=== PATIENT | male | born 1975 | race Caucasian/White ===

== ENCOUNTER → 2018-04-08 | Outpatient (CLI) | payer BC ==
--- NOTE | 2018-04-12 18:03 | PCVCIMAG ---
APPROVED REPORT Study performed: 04/08/2018 16:04:12 Exam: Stress Echocardiogram Indication: Palpitations, tachycardia Patient Location: Echo lab Stress Nurse: Jenna Jackson RN Room #: 2 Status: routine Ht: 6 ft 1 in HR: 77 bpm BP: 120/88 mmHg Rhythm: NSR Medical History Medical History: Hyperlipidemia Cardiac Risk Factors: Hyperlipidemia, Tobacco History (Former) Previous Cardiac Procedures: none Pretest Chest Pain Characteristics: No chest pain Exercise History: Sedentary Procedure The patient underwent an Exercise Stress Test using the Scott Protocol. Blood pressure, heart rate, and EKG were monitored. An Echocardiogram was performed by corrosion technician in four stages in quad fashion. At peak stress, four selected images were obtained and placed side by side with resting images for comparison. Stress Test Details Stress Test: Exercise stress testing was performed using a Scott protocol. HR Resting HR: 80 bpmMax Heart Rate (APMHR): 177 bpm Max HR Achieved: 176 bpmTarget HR (85% APMHR): 150 bpm % of APMHR: 99 Recovery HR: 99 bpm HR response to stress: Normal HR response to stress BP Resting BP: 120/88 mmHg Max BP: 164/80 mmHg Recovery BP: 132/80 mmHg ECG Resting ECG: Sinus Rhythm with sinus arrhythmia Stress ECG: Sinus Rhythm ST Change: Non-ischemic Arrhythmia: None Recovery ECG: Sinus Rhythm Recovery ST Change: Eqivocally ischemic Recovery Arrhythmia: None Clinical Reason for Termination: Maximal effort Stress Symptoms: none Exercise duration: 9 min 15 sec Highest Stage Achieved: Stage 4: 4.2 mph at 16% grade. Exercise capacity: 10.8 METs Overall Exercise Capacity for Age: Average Scale: Sedentary Angina Score: None No complications. Stress ECG Conclusion The patient exercised according to the SCOTT protocol for 9:15 mins; achieving a work level of 10.8 METS. The resting heart rate of 77 bpm claude to a maximum heart rate of 176 bpm. This value represent 99% of the maximal, age-predicted heart rate. The resting blood pressure of 120/88 mmHg, claude to a maximum blood pressure of 164/80 mmHg. The exercise test was stopped due to fatigue. Pre-Stress Echo The resting Echocardiogram showed normal left ventricular contractility with an estimated Ejection Fraction of about 55-60%. Normal wall motion in all segments on baseline images. Post-Stress Echo The stress Echocardiogram showed normal left ventricular contractility with an estimated Ejection Fraction of about 65-70%. Normal augmentation of wall motion in all segments on post stress images. Clinical No clinical or ECG evidence for ischemia. Conclusion Clinical Response: Non-ischemic Exercise Capacity: Average Stress ECG Response: Non-ischemic Stress Echo Images: Non-ischemic No clinical, EKG or echocardiographic evidence for ischemia. No echocardiographic evidence for exercise induced ischemia. Normal stress echocardiogram with maximal exercise stress. No prior study available for comparison. <Conclusion> No clinical, EKG or echocardiographic evidence for ischemia. No echocardiographic evidence for exercise induced ischemia. Normal stress echocardiogram with maximal exercise stress.
== END | disposition home or self-care (01) ==
LOC: PCVCIMAG 15:50
PROVIDERS: ATTEND Internal Medicine Cardiovascular Disease
DX: R00.0 Tachycardia, unspecified (principal); R00.2 Palpitations; R42 Dizziness and giddiness; E78.5 Hyperlipidemia, unspecified; E78.00 Pure hypercholesterolemia, unspecified; Z87.891 Personal history of nicotine dependence
CPT/HCPCS: 93325; 93351